=== PATIENT | male | born 1990 | race African-American/Black ===

== ENCOUNTER 2017-05-15 02:17 | Emergency (ER) | payer MEDICAID, OTHER, SELFPAY ==
--- NOTE | 2017-05-15 02:43 | EDM.PDOC ---
ED HPI GENERAL MEDICAL PROBLEM - General Chief Complaint: ENT Problem Stated Complaint: LEFT EAR PAIN Time Seen by Provider: 05/15/17 02:28 - History of Present Illness INITIAL COMMENTS - FREE TEXT/NARRATIVE: HISTORY AND PHYSICAL: History of present illness: The patient is a healthy 27-year-old male who presents with complaints of 2 days of left ear pain and he noticed drainage from it and he was concerned. Has not had a fever headache sore throat runny nose cough nausea or vomiting. He says he was swimming and that he might have gotten some water in there. He is only use ugdi-mad-barnqyc wax drops Review of systems: As per history of present illness and below otherwise all systems reviewed and negative. Past medical history: As per history of present illness and as reviewed below otherwise noncontributory. Surgical history: As per history of present illness and as reviewed below otherwise noncontributory. Social history: No reported history of drug or alcohol abuse. Family history: As per history of present illness and as reviewed below otherwise noncontributory. Physical exam: HEENT: Atraumatic, normocephalic, pupils reactive, negative for conjunctival pallor or scleral icterus, mucous membranes moist, throat clear, neck supple, nontender, trachea midline. TM on the right is Shemar is some cerumen in the canal but there is no swelling drainage or mastoid tenderness. On the left there is no mastoid tenderness or redness but there is gross inflammation of the external canal with debris and liquefied cerumen area the TM is unable to be seen completely but the area that I can see is somewhat reddened. Lungs: Clear to auscultation, breath sounds equal bilaterally, chest nontender. Heart: S1S2, regular rate and rhythm no overt murmurs Abdomen: Soft, nondistended, nontender. NABS Genitourinary: Deferred. Rectal: Deferred. Extremities: Atraumatic, negative for cords or calf pain. Neurovascular unremarkable. Neuro: Awake, alert, oriented. Cranial nerves II through XII unremarkable. Cerebellum unremarkable. Motor and sensory unremarkable throughout. Exam nonfocal. Diagnostics: [] Therapeutics: [] Impression: Otitis externa Definitive disposition and diagnosis as appropriate pending reevaluation and review of above. Left Ear Pain Score (Numeric/FACES): 10 - Related Data Allergies Allergy/AdvReac Type Severity Reaction Status Date / Time No Known Allergies Allergy Verified 05/15/17 02:29 Home Meds: Home Meds . [No Known Home Meds] 05/15/17 [History] Past Medical History - Past Health History Medical/Surgical History: Denies Medical/Surgical History HEENT History: Reports: None Cardiovascular History: Reports: Heart Murmur Respiratory History: Reports: None Gastrointestinal History: Reports: None Genitourinary History: Reports: None Musculoskeletal History: Reports: Fracture Neurological History: Reports: None Psychiatric History: Reports: Depression, Suicide Attempt, Suicidal Ideation Endocrine/Metabolic History: Reports: Obesity/BMI 30+ Hematologic History: Reports: None Immunologic History: Reports: None Oncologic (Cancer) History: Reports: None Dermatologic History: Reports: None - Infectious Disease History Infectious Disease History: Reports: Chicken Pox - Past Surgical History Musculoskeletal Surgical History: Reports: Shoulder Surgery Social & Family History - Family History Family Medical History: Noncontributory - Tobacco Use Smoking Status *Q: Never Smoker Second Hand Smoke Exposure: No - Caffeine Use Caffeine Use: Reports: Coffee - Alcohol Use Days Per Week of Alcohol Use: 1 Number of Drinks Per Day: 3 Total Drinks Per Week: 3 - Recreational Drug Use Recreational Drug Use: No ED ROS GENERAL - Review of Systems Review Of Systems: ROS reveals no pertinent complaints other than HPI. ED EXAM, GENERAL - Physical Exam Exam: See Below (See dictation) Course - Vital Signs Last Recorded V/S: Last Vital Signs Temp 36.5 C 05/15/17 02:25 Pulse 113 H 05/15/17 02:25 Resp 20 05/15/17 02:25 BP 161/98 H 05/15/17 02:25 Pulse Ox 95 05/15/17 02:25 Departure - Departure Time of Disposition: 02:41 Disposition: Home, Self-Care 01 Condition: Good Clinical Impression: Otitis externa Qualifiers: Otitis externa type: swimmer's ear Chronicity: acute Laterality: left Qualified Code(s): H60.332 - Swimmer's ear, left ear - Discharge Information Forms: ED Department Discharge Additional Instructions: The following information is given to patients seen in the emergency department who are being discharged to home. This information is to outline your options for follow-up care. We provide all patients seen in our emergency department with a follow-up referral. The need for follow-up, as well as the timing and circumstances, are variable depending upon the specifics of your emergency department visit. If you don't have a primary care physician on staff, we will provide you with a referral. We always advise you to contact your personal physician following an emergency department visit to inform them of the circumstance of the visit and for follow-up with them and/or the need for any referrals to a consulting specialist. The emergency department will also refer you to a specialist when appropriate. This referral assures that you have the opportunity for followup care with a specialist. All of these measure are taken in an effort to provide you with optimal care, which includes your followup. Under all circumstances we always encourage you to contact your private physician who remains a resource for coordinating your care. When calling for followup care, please make the office aware that this follow-up is from your recent emergency room visit. If for any reason you are refused follow-up, please contact the [facility] emergency department at and ask to speak to the emergency department charge nurse. [facility] Primary [facility]- [place] [id number] These use medications that you're given tonight as directed, amoxicillin and Cortisporin otic. Please put nothing in the ear including Q-tips and expect drainage from the ear which she which is clean what you can see. Use over-the- counter Tylenol/ibuprofen for pain and please complete the amoxicillin. Call and follow-up in our clinic in the next few days for reevaluation and further care. Please prevent anymore water from getting into your ear until the treatment is finished.
== END 2017-05-15 03:13 | disposition home or self-care (01) ==
LOC: MW.ED 02:17
CPT/HCPCS: 99282

== ENCOUNTER 2017-07-23 17:54 | Emergency (ER) | payer OTHER, SELFPAY ==
[2017-07-23] MEDS ORDERED: Sodium Chloride 0.9% 2.5 ML Syringe FLUSH PRN (18:46)
[2017-07-23] MEDS ORDERED: Ketorolac 30 MG/ML SDV IVPUSH ONE (18:46)
[2017-07-23] MEDS ORDERED: Sodium Chloride 0.9% 1,000 ML IV ONE (18:46)
[2017-07-23] MEDS ORDERED: Ondansetron 4 MG/2 ML SDV IVPUSH ONE (18:46)
[2017-07-23] MEDS ORDERED: Sodium Chloride 0.9% 10 ML Syringe FLUSH PRN (18:46)
[2017-07-23 19:21] LABS: CHLORIDE,CL 107 mmol/L (98-110); SODIUM,NA 140 mmol/L (136-146)
[2017-07-23] MEDS ORDERED: Iopamidol 755 MG/ML 500 ML Multipack Bottle IVPUSH STA (21:35)
[2017-07-23] MEDS ORDERED: Morphine 10 MG/ML Syringe IV ONE (21:46)
--- NOTE | 2017-07-23 21:54 | EDM.PDOC ---
ED HPI GENERAL MEDICAL PROBLEM - General Chief Complaint: Abdominal Pain Stated Complaint: PT HAS STOMACH PAINS Time Seen by Provider: 07/23/17 18:33 Source of Information: Reports: Patient, Family History Limitations: Reports: No Limitations - History of Present Illness INITIAL COMMENTS - FREE TEXT/NARRATIVE: HISTORY AND PHYSICAL: []27-year-old black male presenting with abdominal pain for the last week History of Present Illness: []Patient had 2 bouts of diarrhea today With further discussion patient reveals he has had 2 hospitals tell him that he has had cholecystitis, [facility] not Review of Systems: As per history of present illness and below otherwise all systems reviewed and negative. Past medical history: As per history of present illness and as reviewed below otherwise noncontributory. Surgical history: As per history of present illness and as reviewed below otherwise noncontributory. Social history: No reported history of drug or alcohol abuse. Family history: As per history of present illness and as reviewed below otherwise noncontributory. Physical exam: Alert and oriented gentleman answering questions appropriately in full sentences without any shortness of breath he is nontoxic in appearance. HEENT: Atraumatic, normocehpalic, pupils reactive, negative for conjunctival pallor or scleral icterus, mucous membranes moist, throat clear, neck supple, nontender, trachea midline. Lungs: Clear to auscultation, breath sounds equal bilaterally, chest non tender. Heart: S1S2, regular, negative for clicks, rubs, or JVD. Abdomen: Soft, nondistended, exquisite tenderness to right epigastric. Negative for masses or hepatossplenmegaly. Negative for costovertebral tenderness. Pelvis: Stable nontender. Genitourinary: Deferred. Rectal: Deferred Extremities: Atraumatic, negative for cords or calf pain. Neurovascular unremarkable. Neuro: Awake, alert, oriented. Cranial nerves II through XII unremarkable. Cerebellum unremarkable. Motor and sensory unremarkable throughout. Exam nonfocal. Diagnostics: [CT abdomen and pelvis] Therapeutics: [IV fluids morphine and Zofran] Impression: [Biliary colic] Plan: [Discharged to home Nexium 20 mg twice daily No fat diet Pain medication hydrocodone/APAP Follow-up with Dr. Reji Coker [facility] - General Surgery [facility] [address] [place] [address], [address] [place] [address] ] Definitive disposition and diagnosis as appropriate pending reevaluation and review of above. abdominal area Pain Score (Numeric/FACES): 7 - Related Data Allergies Allergy/AdvReac Type Severity Reaction Status Date / Time No Known Allergies Allergy Verified 07/23/17 18:30 Home Meds: Home Meds . [No Known Home Meds] 05/15/17 [History] Past Medical History - Past Health History Medical/Surgical History: Denies Medical/Surgical History HEENT History: Reports: None Cardiovascular History: Reports: Heart Murmur Respiratory History: Reports: None Gastrointestinal History: Reports: None Genitourinary History: Reports: None Musculoskeletal History: Reports: Fracture Neurological History: Reports: None Psychiatric History: Reports: Depression, Suicide Attempt, Suicidal Ideation Endocrine/Metabolic History: Reports: Obesity/BMI 30+ Hematologic History: Reports: None Immunologic History: Reports: None Oncologic (Cancer) History: Reports: None Dermatologic History: Reports: None - Infectious Disease History Infectious Disease History: Reports: Chicken Pox Other Infectious Disease History: staph infection - Past Surgical History Head Surgeries/Procedures: Reports: None Musculoskeletal Surgical History: Reports: Shoulder Surgery Social & Family History - Family History Family Medical History: Noncontributory - Tobacco Use Smoking Status *Q: Never Smoker Second Hand Smoke Exposure: No - Caffeine Use Caffeine Use: Reports: Coffee Caffeine Use Comment: 2cups/day - Alcohol Use Days Per Week of Alcohol Use: 1 Number of Drinks Per Day: 3 Total Drinks Per Week: 3 - Recreational Drug Use Recreational Drug Use: No ED ROS GENERAL - Review of Systems Review Of Systems: ROS reveals no pertinent complaints other than HPI. ED EXAM, GI/ABD - Physical Exam Exam: See Below (See dictation) Course - Vital Signs Last Recorded V/S: Last Vital Signs Temp 36.7 C 07/23/17 18:30 Pulse 69 07/23/17 20:56 Resp 20 07/23/17 20:56 BP 155/100 H 07/23/17 20:56 Pulse Ox 99 07/23/17 20:56 - Orders/Labs/Meds Orders: Active Orders 24 hr Category Date Time Status Abdomen Pelvis w Cont [CT] Stat Exams 07/23/17 20:07 Taken Chest 2V [CR] Stat Exams 07/23/17 18:45 Taken Sodium Chloride 0.9% [Saline Flush] Med 07/23/17 18:46 Active 10 ml FLUSH ASDIRECTED PRN Sodium Chloride 0.9% [Saline Flush] Med 07/23/17 18:46 Active 2.5 ml FLUSH ASDIRECTED PRN Saline Lock Insert [OM.PC] Stat Oth 07/23/17 18:45 Ordered Medication Orders Sodium Chloride (Saline Flush) 10 ml FLUSH ASDIRECTED PRN PRN Reason: Keep Vein Open Sodium Chloride (Saline Flush) 2.5 ml FLUSH ASDIRECTED PRN PRN Reason: Keep Vein Open Labs: Laboratory Tests 07/23/17 07/23/17 07/23/17 Range/Units 18:50 18:50 19:36 WBC 4.61 (4.0-11.0) K/uL RBC 6.09 H (4.50-5.90) M/uL Hgb 16.6 (13.0-17.0) g/dL Hct 48.3 (38.0-50.0) % MCV 79.3 L (80.0-98.0) fL MCH 27.3 (27.0-32.0) pg MCHC 34.4 (31.0-37.0) g/dL RDW Std Deviation 40.3 (28.0-62.0) fl RDW Coeff of Lam 14 (11.0-15.0) % Plt Count 253 (150-400) K/uL MPV 10.10 (7.40-12.00) fL Neut % (Auto) 63.6 (48.0-80.0) % Lymph % (Auto) 23.6 (16.0-40.0) % Stanley % (Auto) 8.9 (0.0-15.0) % Eos % (Auto) 3.7 (0.0-7.0) % Baso % (Auto) 0.2 (0.0-1.5) % Neut # (Auto) 2.9 (1.4-5.7) K/uL Lymph # (Auto) 1.1 (0.6-2.4) K/uL Stanley # (Auto) 0.4 (0.0-0.8) K/uL Eos # (Auto) 0.2 (0.0-0.7) K/uL Baso # (Auto) 0.0 (0.0-0.1) K/uL Nucleated RBC % 0.0 /100WBC Nucleated RBCs # 0 K/uL Sodium 140 (136-146) mmol/L Potassium 4.2 (3.5-5.1) mmol/L Chloride 107 (98-110) mmol/L Carbon Dioxide 23 (21-31) mmol/L BUN 11 (6.0-23.0) mg/dL Creatinine 0.8 (0.6-1.5) mg/dL Est Cr Clr Drug Dosing 128.53 mL/min Estimated GFR (MDRD) > 60.0 ml/min Glucose 104 (60-110) mg/dL Calcium 9.5 (8.8-10.8) mg/dL Total Bilirubin 1.3 (0.1-1.5) mg/dL AST 411 H (5-40) IU/L ALT 330 H (8-54) IU/L Alkaline Phosphatase 95 (40-150) Total Protein 7.9 (6.0-8.0) g/dL Albumin 4.2 (3.5-5.0) g/dL Globulin 3.7 H (2.0-3.5) g/dL Albumin/Globulin Ratio 1.1 L (1.3-2.8) Amylase 64 (10-90) U/L Lipase 30 (7-80) U/L Urine Color YELLOW Urine Appearance HAZY Urine pH 7.0 (5.0-8.0) Ur Specific [place] 1.025 (1.001-1.035) Urine Protein 100 (NEGATIVE) mg/dL Urine Glucose (UA) NEGATIVE (NEGATIVE) mg/dL Urine Ketones NEGATIVE (NEGATIVE) mg/dL Urine Occult Blood NEGATIVE (NEGATIVE) Urine Nitrite NEGATIVE (NEGATIVE) Urine Bilirubin SMALL H (NEGATIVE) Urine Ictotest NEGATIVE Urine Urobilinogen 4.0 H (<2.0) EU/dL Ur Leukocyte Esterase NEGATIVE (NEGATIVE) Urine RBC 0-2 (0-2/HPF) Urine WBC 0-3 (0-5/HPF) Ur Epithelial Cells RARE (NONE-FEW) Urine Bacteria RARE (NEGATIVE) Meds: Medications Generic Name Dose Route Start Last Admin Trade Name Freq PRN Reason Stop Dose Admin Sodium Chloride 10 ml 07/23/17 18:46 Saline Flush FLUSH ASDIRECTED PRN Keep Vein Open Sodium Chloride 2.5 ml 07/23/17 18:46 Saline Flush FLUSH ASDIRECTED PRN Keep Vein Open Discontinued Medications Generic Name Dose Route Start Last Admin Trade Name Alexey PRN Reason Stop Dose Admin Sodium Chloride 1,000 mls @ 999 mls/hr 07/23/17 18:46 07/23/17 19:36 Normal Saline IV 07/23/17 19:46 999 mls/hr STAT ONE Administration Iopamidol 100 ml 07/23/17 21:35 07/23/17 21:36 Isovue Multipack-370 (76%) IVPUSH 07/23/17 21:36 100 ml ONETIME STA Administration Ketorolac Tromethamine 30 mg 07/23/17 18:46 07/23/17 19:33 Toradol IVPUSH 07/23/17 18:47 30 mg ONETIME ONE Administration Morphine Sulfate 2 mg 07/23/17 21:46 Morphine IV 07/23/17 21:47 ONETIME ONE Ondansetron HCl 4 mg 07/23/17 18:46 07/23/17 19:34 Zofran IVPUSH 07/23/17 18:47 4 mg ONETIME ONE Administration Departure - Departure Time of Disposition: 21:51 Disposition: Home, Self-Care 01 Condition: Good Clinical Impression: Biliary colic - Discharge Information Instructions: Pain Medicine Instructions, [id number] Referrals: PCP,None [Primary Care Provider] - Reji Coker MD [Physician] - Additional Instructions: The following information is given to patients seen in the emergency department who are being discharged to home. This information is to outline your options for follow-up care. We provide all patients seen in our emergency department with a follow-up referral. The need for follow-up, as well as the timing and circumstances, are variable depending upon the specifics of your emergency department visit. If you don't have a primary care physician on staff, we will provide you with a referral. We always advise you to contact your personal physician following an emergency department visit to inform them of the circumstance of the visit and for follow-up with them and/or the need for any referrals to a consulting specialist. The emergency department will also refer you to a specialist when appropriate. This referral assures that you have the opportunity for followup care with a specialist. All of these measure are taken in an effort to provide you with optimal care, which includes your followup. Under all circumstances we always encourage you to contact your private physician who remains a resource for coordinating your care. When calling for followup care, please make the office aware that this follow-up is from your recent emergency room visit. If for any reason you are refused follow-up, please contact the [facility] emergency department at and asked to speak to the emergency department charge nurse. Low-fat diet Follow-up with Dr. Reji Coker : Tuesday morning to obtain an appointment Prescription has been given for hydrocodone/APAP one every 6 hours when necessary pain per [facility] - My Orders Last 24 Hours: My Active Orders 07/23/17 18:45 Chest 2V [CR] Stat Saline Lock Insert [OM.PC] Stat 07/23/17 18:46 Sodium Chloride 0.9% [Saline Flush] 10 ml FLUSH ASDIRECTED PRN Sodium Chloride 0.9% [Saline Flush] 2.5 ml FLUSH ASDIRECTED PRN 07/23/17 20:07 Abdomen Pelvis w Cont [CT] Stat - Assessment/Plan Last 24 Hours: My Active Orders 07/23/17 18:45 Chest 2V [CR] Stat Saline Lock Insert [OM.PC] Stat 07/23/17 18:46 Sodium Chloride 0.9% [Saline Flush] 10 ml FLUSH ASDIRECTED PRN Sodium Chloride 0.9% [Saline Flush] 2.5 ml FLUSH ASDIRECTED PRN 07/23/17 20:07 Abdomen Pelvis w Cont [CT] Stat
[2017-07-23 22:06] VITALS: BP 148/98
--- NOTE | 2017-07-25 11:01 | CR ---
EXAM DATE: 07/23/17 PATIENT'S AGE: 27 Patient: MICHEL DE LOS SANTOS Facility: [place], [place] Site . Site : 1990 Study: XRay Chest [id number]/7/2017 7:14:01 PM Ordering Physician: Doctor Rodriguez Final Report: INDICATION: Pain. Shortness of breath. Technique: PA and lateral chest x-ray. Findings: Mild to moderate increased bronchovascular markings in the right lower lobe of uncertain etiology. Lungs otherwise clear without infiltrate. Heart size normal. Chest otherwise negative. Dictated by Rajendra Crawford MD @ Jul 23 2017 7:34PM (Electronic Signature) Report Signed by Proxy. HALINA
--- NOTE | 2017-07-25 11:10 | CT ---
EXAM DATE: 07/23/17 PATIENT'S AGE: 27 Patient: MICHEL DE LOS SANTOS Facility: [place], [place] Site . Site : 1990 Study: CT Abdomen/Pelvis [id number]/7/2017 9:02:24 PM Ordering Physician: Doctor Rodriguez Final Report: INDICATION: Right lower quadrant abdominal pain for 1 week. Technique: CT of abdomen and pelvis performed after the IV injection of 100 mL of IV contrast. Findings: Opaque areas of nodular low density in the dependent gallbladder likely related to subtle stones. Mild hazy increased density in the fat along the posterior gallbladder with possible trace associated fluid in this region. The findings suggest mild/early cholecystitis which should be excluded. Gallbladder is distended to 9-10 cm. Gallbladder ultrasound and/or HIDA scan could further evaluate. Clinical and laboratory correlation recommended. Subcutaneous edema back. Tiny cyst left kidney. Small right inguinal hernia containing only fat. Mildly prominent bilateral inguinal lymph nodes greater on the left are likely reactive in nature. Small lymph nodes along the iliac chains in the pelvis. Scattered small nonenlarged lymph nodes in the gastrohepatic ligament, portacaval region, celiac axis, and rustam hepatis region are likely reactive. Appendix is normal. Cluster of mildly prominent right lower quadrant mesenteric lymph nodes likely inflammatory reactive. Remainder negative. Impression: 1. Hazy inflammatory increased density in the fat posterior to the gallbladder with possible trace amount of fluid in this region. Findings would suggest mild or early acute cholecystitis. Small low-density filling defects in the gallbladder which I suspect are related to stones, sludge, debris, or combination of both etiologies. Clinical and laboratory correlation recommended. If clinically desired HIDA scan or ultrasound could further evaluate for cholecystitis. 2. Small right inguinal hernia containing only fat. 3. Few mildly prominent right lower quadrant mesenteric and bilateral inguinal lymph nodes are likely inflammatory or reactive. Single mildly prominent left distal external iliac chain lymph node on image 123. Other findings as above. Please note that all CT scans at this facility use dose modulation, iterative reconstruction, and/or weight-based dosing when appropriate to reduce radiation dose to as low as reasonably achievable. Dictated by Rajendra Crawford MD @ Jul 23 2017 9:19PM (Electronic Signature) Report Signed by Proxy. MTDD
== END 2017-07-23 22:07 | disposition home or self-care (01) ==
LOC: MW.ED 17:54
DX: K80.50 Calculus of bile duct without cholangitis or cholecystitis without obstruction (principal)
CPT/HCPCS: 36415; 71020; 74177; 80053; 81001; 82150; 83690; 85025; 96361; 96374; 96375; 99284; J1885; J2270; J2405; J7040; Q9967; 99283

== ENCOUNTER → 2017-08-29 | Day surgery (SDC) | payer OTHER, SELFPAY ==
[~2017-08-29] MED LIST: Bupivacaine 0.5% 30 ML SDV ONE; HYDROmorphone 2 MG/ML Syringe ONE; Ketorolac 30 MG/ML SDV ONE; Lactated Ringers 1,000 ML IV SCH; Lidocaine 2% 5 ML SDV ONE; Metoclopramide 10 MG/2 ML SDV ONE; Midazolam 1 MG/ML 2 ML SDV ONE; Neostigmine Methylsulfate 1 MG/ML 5 ML Syringe ONE; Ondansetron 4 MG/2 ML SDV ONE; Propofol 200 MG/20 ML SDV ONE; Rocuronium 10 MG/ML 10 ML Syringe ONE; Scopolamine 1.5 MG Transdermal Patch TOP ONE; ceFAZolin 1 GM Vial ONE; cefOXitin 1 GM Vial ONE; cefOXitin 2 GM in Premix Bag 1 BAG IV ONE; diphenhydrAMINE 50 MG/ML SDV ONE; fentaNYL 100 MCG/2 ML SDV ONE
[2017-08-29 07:14] VITALS: BP 146/96
--- NOTE | 2017-08-31 20:37 | PCM.OPNOTE ---
- General Post-Op/Procedure Note Date of Surgery/Procedure: 08/29/17 Operative Procedure(s): Surgery cancelled. Condition: Good
== END ==
LOC: MW.SDS 06:20
PROVIDERS: ATTEND Surgery
DX: K80.20 Calculus of gallbladder without cholecystitis without obstruction (principal); Z53.8 Procedure and treatment not carried out for other reasons
CPT/HCPCS: A9270; J7120; J0690; J0694; J1170; J1200; J1885; J2250; J2405; J2704; J2765; J3010

== ENCOUNTER 2018-03-29 11:32 | Emergency (ER) | payer OTHER, SELFPAY ==
--- NOTE | 2018-03-29 11:54 | EDM.PDOC ---
ED HPI GENERAL MEDICAL PROBLEM - General Chief Complaint: General Stated Complaint: PT WOULD LIKE TO GET CHECK FOR THE FLU Time Seen by Provider: 03/29/18 11:52 Source of Information: Reports: Patient - History of Present Illness INITIAL COMMENTS - FREE TEXT/NARRATIVE: HISTORY AND PHYSICAL: History of present illness: [Patient presents with nosebleeds and nasal congestion over the last week currently no active epistaxis no fever chills sweats moderate nasal congestion] Review of systems: As per history of present illness and below otherwise all systems reviewed and negative. Past medical history: As per history of present illness and as reviewed below otherwise noncontributory. Surgical history: As per history of present illness and as reviewed below otherwise noncontributory. Social history: No reported history of drug or alcohol abuse. Family history: As per history of present illness and as reviewed below otherwise noncontributory. Physical exam: HEENT: Atraumatic, normocephalic, pupils reactive, negative for conjunctival pallor or scleral icterus, mucous membranes moist, throat clear, neck supple, nontender, trachea midline. Tympanic membranes clear with serous effusion bilaterally no mastoid tenderness sinus boggy mucosa nasal discharge noted sinus tenderness right greater than left Lungs: Clear to auscultation, breath sounds equal bilaterally, chest nontender. Heart: S1S2, regular, negative for clicks, rubs, or JVD. Abdomen: Soft, nondistended, nontender. Negative for masses or hepatosplenomegaly. Negative for costovertebral tenderness. Pelvis: Stable nontender. Genitourinary: Deferred. Rectal: Deferred. Extremities: Atraumatic, negative for cords or calf pain. Neurovascular unremarkable. Neuro: Awake, alert, oriented. Cranial nerves II through XII unremarkable. Cerebellum unremarkable. Motor and sensory unremarkable throughout. Exam nonfocal. Diagnostics: [Influenza-patient insistent and requests ] Therapeutics: amoxil Flonase Claritin ] Impression: [ acute sinusitis ] Definitive disposition and diagnosis as appropriate pending reevaluation and review of above. - Related Data Allergies Allergy/AdvReac Type Severity Reaction Status Date / Time No Known Allergies Allergy Verified 03/29/18 11:46 Home Meds: Home Meds Acetaminophen [Tylenol Extra Strength] 1 tab PO Q4H PRN 08/23/17 [History] Past Medical History - Past Health History Medical/Surgical History: Denies Medical/Surgical History HEENT History: Reports: Other (See Below) Other HEENT History: hx of fx nose Cardiovascular History: Reports: Heart Murmur Respiratory History: Reports: None Gastrointestinal History: Reports: GERD Genitourinary History: Reports: None Musculoskeletal History: Reports: Fracture, Other (See Below) Other Musculoskeletal History: bilateral foot pain (achilles tendon), hx of fx left foot, nose, hand, left shoulder, toes, fingers Neurological History: Reports: Concussion, Migraines Psychiatric History: Reports: Depression, PTSD Other Psychiatric History: does not take any medication Endocrine/Metabolic History: Reports: Obesity/BMI 30+ Hematologic History: Reports: None Immunologic History: Reports: None Oncologic (Cancer) History: Reports: None Dermatologic History: Reports: None - Infectious Disease History Infectious Disease History: Reports: Chicken Pox Other Infectious Disease History: staph infection - Past Surgical History Head Surgeries/Procedures: Reports: None Musculoskeletal Surgical History: Reports: Shoulder Surgery Other Musculoskeletal Surgeries/Procedures:: trauma to left shoulder- fx, biceps tenotomy, RTCR- unsure of hardware Social & Family History - Family History Family Medical History: Noncontributory - Caffeine Use Caffeine Use: Reports: Coffee Caffeine Use Comment: 2cups/day ED ROS GENERAL - Review of Systems Review Of Systems: See Below ED EXAM, GENERAL - Physical Exam Exam: See Below Course - Vital Signs Last Recorded V/S: Last Vital Signs Temp 98.6 F 03/29/18 11:47 Pulse 84 03/29/18 11:47 Resp 16 03/29/18 11:47 BP 138/91 H 03/29/18 11:47 Pulse Ox 96 03/29/18 11:47 - Orders/Labs/Meds Orders: Active Orders 24 hr Category Date Time Status INFLUENZA A+B AG SCREEN [RM] Stat Lab 03/29/18 11:42 Ordered INFLUENZA A+B AG SCREEN [RM] Stat Lab 03/29/18 11:52 Ordered Departure - Departure Time of Disposition: 11:55 Disposition: Home, Self-Care 01 Condition: Good Clinical Impression: Sinusitis - Discharge Information Referrals: PCP,None [Primary Care Provider] - Forms: ED Department Discharge Additional Instructions: Medication as prescribed Claritin 10 mg by mouth daily may benefit Return if symptoms persist or worsen Follow-up with primary care as needed [facility] [address] [place] [id number] The following information is given to patients seen in the emergency department who are being discharged to home. This information is to outline your options for follow-up care. We provide all patients seen in our emergency department with a follow-up referral. The need for follow-up, as well as the timing and circumstances, are variable depending upon the specifics of your emergency department visit. If you don't have a primary care physician on staff, we will provide you with a referral. We always advise you to contact your personal physician following an emergency department visit to inform them of the circumstance of the visit and for follow-up with them and/or the need for any referrals to a consulting specialist. The emergency department will also refer you to a specialist when appropriate. This referral assures that you have the opportunity for follow-up care with a specialist. All of these measure are taken in an effort to provide you with optimal care, which includes your follow-up. Under all circumstances we always encourage you to contact your private physician who remains a resource for coordinating your care. When calling for follow-up care, please make the office aware that this follow-up is from your recent emergency room visit. If for any reason you are refused follow-up, please contact the [facility] emergency department at and asked to speak to the emergency department charge nurse. - My Orders Last 24 Hours: My Active Orders 03/29/18 11:42 INFLUENZA A+B AG SCREEN [RM] Stat 03/29/18 11:52 INFLUENZA A+B AG SCREEN [RM] Stat - Assessment/Plan Last 24 Hours: My Active Orders 03/29/18 11:42 INFLUENZA A+B AG SCREEN [RM] Stat 03/29/18 11:52 INFLUENZA A+B AG SCREEN [RM] Stat
[2018-03-29 13:01] VITALS: BP 190/97
== END 2018-03-29 12:48 | disposition home or self-care (01) ==
LOC: MW.ED 11:32
DX: J01.90 Acute sinusitis, unspecified (principal); E66.9 Obesity, unspecified
CPT/HCPCS: 87804; 99283

== ENCOUNTER 2018-03-30 19:07 | Emergency (ER) | payer SELFPAY ==
--- NOTE | 2018-03-30 19:24 | EDM.PDOC ---
ED HPI GENERAL MEDICAL PROBLEM - General Chief Complaint: ENT Problem Stated Complaint: NOSE BLEED Time Seen by Provider: 03/30/18 19:24 Source of Information: Reports: Patient - History of Present Illness INITIAL COMMENTS - FREE TEXT/NARRATIVE: HISTORY AND PHYSICAL: History of present illness: [Patient presents with persistent intermittent epistaxis Recently diagnosed with sinusitis, he is on amoxicillin Nosebleed occurs intermittently several times a day on the left no air there is a couple of anterior abrasions I can cauterize this may be the entire problem otherwise his left naris swollen shut, right near is patent no abrasions or abnormality noted he denies any trauma no fever chills sweats today patient is not bleeding at current ] Review of systems: As per history of present illness and below otherwise all systems reviewed and negative. Past medical history: As per history of present illness and as reviewed below otherwise noncontributory. Surgical history: As per history of present illness and as reviewed below otherwise noncontributory. Social history: No reported history of drug or alcohol abuse. Family history: As per history of present illness and as reviewed below otherwise noncontributory. Physical exam: HEENT: Atraumatic, normocephalic, pupils reactive, negative for conjunctival pallor or scleral icterus, mucous membranes moist, throat clear, neck supple, nontender, trachea midline. Nares as per history of present illness Lungs: Clear to auscultation, breath sounds equal bilaterally, chest nontender. Heart: S1S2, regular, negative for clicks, rubs, or JVD. Abdomen: Soft, nondistended, nontender. Negative for masses or hepatosplenomegaly. Negative for costovertebral tenderness. Pelvis: Stable nontender. Genitourinary: Deferred. Rectal: Deferred. Extremities: Atraumatic, negative for cords or calf pain. Neurovascular unremarkable. Neuro: Awake, alert, oriented. Cranial nerves II through XII unremarkable. Cerebellum unremarkable. Motor and sensory unremarkable throughout. Exam nonfocal. Diagnostics: [CBC, INR] Therapeutics: Patient is on amoxicillin and Flonase as well as Claritin was advised previously Silver nitrate applied to anterior abrasions with cautery no complication no complaint Impression: []Sinusitis Intermittent epistaxis Definitive disposition and diagnosis as appropriate pending reevaluation and review of above. - Related Data Allergies Allergy/AdvReac Type Severity Reaction Status Date / Time No Known Allergies Allergy Verified 03/30/18 19:20 Home Meds: Home Meds Amoxicillin 875 mg PO DAILY 03/30/18 [History] Past Medical History - Past Health History Medical/Surgical History: Denies Medical/Surgical History HEENT History: Reports: Other (See Below) Other HEENT History: hx of fx nose Cardiovascular History: Reports: Heart Murmur Respiratory History: Reports: None Gastrointestinal History: Reports: Cholelithiasis, GERD Genitourinary History: Reports: None Musculoskeletal History: Reports: Fracture, Other (See Below) Other Musculoskeletal History: bilateral foot pain (achilles tendon), hx of fx left foot, nose, hand, left shoulder, toes, fingers Neurological History: Reports: Concussion, Migraines Psychiatric History: Reports: Depression, PTSD Other Psychiatric History: does not take any medication Endocrine/Metabolic History: Reports: Obesity/BMI 30+ Hematologic History: Reports: None Immunologic History: Reports: None Oncologic (Cancer) History: Reports: None Dermatologic History: Reports: None - Infectious Disease History Infectious Disease History: Reports: Chicken Pox Other Infectious Disease History: staph infection - Past Surgical History Head Surgeries/Procedures: Reports: None Musculoskeletal Surgical History: Reports: Shoulder Surgery Other Musculoskeletal Surgeries/Procedures:: trauma to left shoulder- fx, biceps tenotomy, RTCR- unsure of hardware Social & Family History - Family History Family Medical History: Noncontributory - Tobacco Use Smoking Status *Q: Never Smoker - Caffeine Use Caffeine Use: Reports: Coffee Caffeine Use Comment: 2cups/day - Recreational Drug Use Recreational Drug Use: No ED ROS GENERAL - Review of Systems Review Of Systems: See Below ED EXAM, GENERAL - Physical Exam Exam: See Below Course - Vital Signs Last Recorded V/S: Last Vital Signs Temp 99.0 F 03/30/18 19:17 Pulse 87 03/30/18 19:17 Resp 16 03/30/18 19:17 BP 148/108 H 03/30/18 19:17 Pulse Ox 95 03/30/18 19:17 - Orders/Labs/Meds Labs: Laboratory Tests 03/30/18 03/30/18 Range/Units 19:39 19:39 WBC 7.04 (4.0-11.0) K/uL RBC 6.00 H (4.50-5.90) M/uL Hgb 16.1 (13.0-17.0) g/dL Hct 47.2 (38.0-50.0) % MCV 78.7 L (80.0-98.0) fL MCH 26.8 L (27.0-32.0) pg MCHC 34.1 (31.0-37.0) g/dL RDW Std Deviation 39.3 (28.0-62.0) fl RDW Coeff of Lam 14 (11.0-15.0) % Plt Count 225 (150-400) K/uL MPV 9.70 (7.40-12.00) fL Neut % (Auto) 67.1 (48.0-80.0) % Lymph % (Auto) 19.3 (16.0-40.0) % Barry % (Auto) 7.2 (0.0-15.0) % Eos % (Auto) 6.3 (0.0-7.0) % Baso % (Auto) 0.1 (0.0-1.5) % Neut # (Auto) 4.7 (1.4-5.7) K/uL Lymph # (Auto) 1.4 (0.6-2.4) K/uL Barry # (Auto) 0.5 (0.0-0.8) K/uL Eos # (Auto) 0.4 (0.0-0.7) K/uL Baso # (Auto) 0.0 (0.0-0.1) K/uL Nucleated RBC % 0.0 /100WBC Nucleated RBCs # 0 K/uL INR 0.98 Departure - Departure Time of Disposition: 20:29 Disposition: Home, Self-Care 01 Condition: Good Clinical Impression: Epistaxis - Discharge Information Referrals: PCP,None [Primary Care Provider] - Forms: ED Department Discharge Additional Instructions: Return if symptoms persist or worsen Continue current medications including amoxicillin nasal spray a allergy medicine such as Claritin Follow-up with ENT, call for appointment and appropriate follow-up at number provided below [facility] - ENT [address] [place] [id number] The following information is given to patients seen in the emergency department who are being discharged to home. This information is to outline your options for follow-up care. We provide all patients seen in our emergency department with a follow-up referral. The need for follow-up, as well as the timing and circumstances, are variable depending upon the specifics of your emergency department visit. If you don't have a primary care physician on staff, we will provide you with a referral. We always advise you to contact your personal physician following an emergency department visit to inform them of the circumstance of the visit and for follow-up with them and/or the need for any referrals to a consulting specialist. The emergency department will also refer you to a specialist when appropriate. This referral assures that you have the opportunity for follow-up care with a specialist. All of these measure are taken in an effort to provide you with optimal care, which includes your follow-up. Under all circumstances we always encourage you to contact your private physician who remains a resource for coordinating your care. When calling for follow-up care, please make the office aware that this follow-up is from your recent emergency room visit. If for any reason you are refused follow-up, please contact the [facility] emergency department at and asked to speak to the emergency department charge nurse.
[2018-03-31 03:18] VITALS: BP 160/96
== END 2018-03-30 20:36 | disposition home or self-care (01) ==
LOC: MW.ED 19:07
DX: R04.0 Epistaxis (principal); J32.9 Chronic sinusitis, unspecified; K21.9 Gastro-esophageal reflux disease without esophagitis
CPT/HCPCS: 30901; 36415; 85025; 85610; 99282; 99283

== ENCOUNTER 2018-12-26 15:05 | Emergency (ER) | payer SELFPAY ==
--- NOTE | 2018-12-26 15:09 | EDM.PDOCBH ---
ED HPI GENERAL MEDICAL PROBLEM - General Chief Complaint: Behavioral/Psych Stated Complaint: MENTAL HEALTH Time Seen by Provider: 12/26/18 15:08 Source of Information: Reports: Patient History Limitations: Reports: No Limitations - History of Present Illness INITIAL COMMENTS - FREE TEXT/NARRATIVE: HISTORY AND PHYSICAL: History of present illness: Patient is a 28-year-old male who presents to the ED today with a police commissioner escort for concerns of suicidal intent. Patient states his plan today was to cut his wrist. Patient states that he was at work and began to have these thoughts. He states that he sat down and rather than going home for lunch , he stayed at work. Patient states had he gone home for lunch he would've made and active attempt to kill himself. His coworker had called the police commissioner with concerns. The police commissioner then brought Ángel to the ED today. Patient states he does have a history of depression, but has never been on medications or receive treatment for it. He states he has had suicidal ideation for several years. He states he did have 1 prior attempt and was loading a shotgun several years ago when his brother walked in on him and stopped him. He states that today his intent was to cut his wrist. Patient states that currently he has in the ED for help but he knows that if he were to go home he would try to kill himself. Patient has not taken any medications, alcohol, or drugs to make an attempt. Patient denies any health history. All other review of systems reviewed and negative. Review of systems: As per history of present illness and below otherwise all systems reviewed and negative. Past medical history: As per history of present illness and as reviewed below otherwise noncontributory. Surgical history: As per history of present illness and as reviewed below otherwise noncontributory. Social history: See social history for further information Family history: As per history of present illness and as reviewed below otherwise noncontributory. Physical exam: General: Patient is alert, oriented, and in no acute distress. He is sitting comfortably on exam table. HEENT: Atraumatic, normocephalic, pupils equal and reactive bilaterally, negative for conjunctival pallor or scleral icterus, mucous membranes moist, TMs normal bilaterally, throat clear, neck supple, nontender, trachea midline. No drooling or trismus noted. No meningeal signs. No hot potato voice noted. Lungs: Clear to auscultation, breath sounds equal bilaterally, chest nontender. Heart: S1S2, regular rate and rhythm without overt murmur Abdomen: Obese, soft, nondistended, nontender. Negative for masses or hepatosplenomegaly. Negative for costovertebral tenderness. Pelvis: Stable nontender. Genitourinary: Deferred. Rectal: Deferred. Skin: Intact, warm, dry. No lesions or rashes noted. Extremities: Atraumatic, negative for cords or calf pain. Neurovascular unremarkable. Neuro: Awake, alert, oriented. Cranial nerves II through XII unremarkable. Cerebellum unremarkable. Motor and sensory unremarkable throughout. Exam nonfocal. Notes: 15:35: Patient is open to receiving help today. Labs ordered and will start the process for transfer. 15:40: [facility] does not have any psychiatric beds available. Will wait for labs. 17:16: Blood work is unremarkable. Still awaiting patient to leave a urine sample. [facility] in [place] is accepting of the patient. We will arrange transfer via EMS. Patient is aware and agreeable. Patient's blood pressure remains slightly elevated. He states he has no previous history of this. We'll give him 1 dose of clonidine 0.1 mg by mouth. We will continue to monitor. Diagnostics: CBC, CMP, UA, urine drug screen, salicylate, acetaminophen tsh Therapeutics: Clonidine 0.1mg Impression: Suicidal Ideation with Intent Plan: 1. Transfer to [facility]. Definitive disposition and diagnosis as appropriate pending reevaluation and review of above. - Related Data Allergies Allergy/AdvReac Type Severity Reaction Status Date / Time No Known Allergies Allergy Verified 03/30/18 19:20 Home Meds: Home Meds . [No Known Home Meds] 12/26/18 [History] Past Medical History - Past Health History Medical/Surgical History: Denies Medical/Surgical History HEENT History: Reports: Other (See Below) Other HEENT History: hx of fx nose Cardiovascular History: Reports: Heart Murmur Respiratory History: Reports: None Gastrointestinal History: Reports: Cholelithiasis, GERD Genitourinary History: Reports: None Musculoskeletal History: Reports: Fracture, Other (See Below) Other Musculoskeletal History: bilateral foot pain (achilles tendon), hx of fx left foot, nose, hand, left shoulder, toes, fingers Neurological History: Reports: Concussion, Migraines Psychiatric History: Reports: Depression, PTSD Other Psychiatric History: does not take any medication Endocrine/Metabolic History: Reports: Obesity/BMI 30+ Hematologic History: Reports: None Immunologic History: Reports: None Oncologic (Cancer) History: Reports: None Dermatologic History: Reports: None - Infectious Disease History Infectious Disease History: Reports: Chicken Pox Other Infectious Disease History: staph infection - Past Surgical History Head Surgeries/Procedures: Reports: None Musculoskeletal Surgical History: Reports: Shoulder Surgery Other Musculoskeletal Surgeries/Procedures:: trauma to left shoulder- fx, biceps tenotomy, RTCR- unsure of hardware Social & Family History - Family History Family Medical History: Noncontributory - Caffeine Use Caffeine Use: Reports: Coffee Caffeine Use Comment: 2cups/day ED ROS GENERAL - Review of Systems Review Of Systems: ROS reveals no pertinent complaints other than HPI. ED EXAM, BEHAVIORAL HEALTH - Physical Exam Exam: See Below (See dictation) COURSE, BEHAVIORAL HEALTH COMP - Course Vital Signs: Last Vital Signs Temp 98.3 F 12/26/18 15:12 Pulse 92 12/26/18 15:12 Resp 17 12/26/18 15:12 BP 159/102 H 12/26/18 15:12 Pulse Ox 96 12/26/18 15:12 Orders, Labs, Meds: Active Orders 24 hr Category Date Time Status DRUG SCREEN, URINE [URCHEM] Stat Lab 12/26/18 15:27 Ordered UA RFX MEGAN AND CULT IF INDIC [URIN] Stat Lab 12/26/18 15:27 Ordered Laboratory Tests 12/26/18 12/26/18 Range/Units 15:37 15:37 WBC 5.98 (4.0-11.0) K/uL RBC 6.22 H (4.50-5.90) M/uL Hgb 16.5 (13.0-17.0) g/dL Hct 48.7 (38.0-50.0) % MCV 78.3 L (80.0-98.0) fL MCH 26.5 L (27.0-32.0) pg MCHC 33.9 (31.0-37.0) g/dL RDW Std Deviation 38.6 (28.0-62.0) fl RDW Coeff of Lam 14 (11.0-15.0) % Plt Count 304 (150-400) K/uL MPV 9.90 (7.40-12.00) fL Neut % (Auto) 65.4 (48.0-80.0) % Lymph % (Auto) 23.1 (16.0-40.0) % Griggs % (Auto) 9.2 (0.0-15.0) % Eos % (Auto) 2.0 (0.0-7.0) % Baso % (Auto) 0.3 (0.0-1.5) % Neut # (Auto) 3.9 (1.4-5.7) K/uL Lymph # (Auto) 1.4 (0.6-2.4) K/uL Griggs # (Auto) 0.6 (0.0-0.8) K/uL Eos # (Auto) 0.1 (0.0-0.7) K/uL Baso # (Auto) 0.0 (0.0-0.1) K/uL Nucleated RBC % 0.0 /100WBC Nucleated RBCs # 0 K/uL Sodium 142 (136-148) mmol/L Potassium 4.1 (3.5-5.1) mmol/L Chloride 105 (98-107) mmol/L Carbon Dioxide 24.3 (21.0-32.0) mmol/L BUN 9 (7.0-18.0) mg/dL Creatinine 1.2 (0.8-1.3) mg/dL Est Cr Clr Drug Dosing 84.92 mL/min Estimated GFR (MDRD) > 60.0 ml/min Glucose 95 (74-106) mg/dL Calcium 9.6 (8.5-10.1) mg/dL Total Bilirubin 0.7 (0.2-1.0) mg/dL AST 17 (15-37) IU/L ALT 38 (14-63) IU/L Alkaline Phosphatase 74 (46-116) U/L Total Protein 8.5 H (6.4-8.2) g/dL Albumin 4.0 (3.4-5.0) g/dL Globulin 4.5 H (2.6-4.0) g/dL Albumin/Globulin Ratio 0.9 (0.9-1.6) TSH 3rd Generation 1.65 (0.36-3.74) uIU/mL Salicylates 0.2 (0-20) mg/dL Acetaminophen < 2.0 ug/mL Ethyl Alcohol <3 mg/dL Departure - Departure Time of Disposition: 17:30 Disposition: DC/Tfer to Psych Hosp/Unit [facility] Clinical Impression: Suicidal intent - Discharge Information Referrals: PCP,Unknown [Primary Care Provider] - Forms: ED Department Discharge - My Orders Last 24 Hours: My Active Orders 12/26/18 15:27 DRUG SCREEN, URINE [URCHEM] Stat UA RFX MEGAN AND CULT IF INDIC [URIN] Stat - Assessment/Plan Last 24 Hours: My Active Orders 12/26/18 15:27 DRUG SCREEN, URINE [URCHEM] Stat UA RFX MEGAN AND CULT IF INDIC [URIN] Stat
[2018-12-26 16:59] LABS: CHLORIDE,CL 105 mmol/L (98-107); SODIUM,NA 142 mmol/L (136-148)
[2018-12-26 17:00] LABS: ACETAMINOPHEN < 2.0 ug/mL
[2018-12-26] MEDS ORDERED: cloNIDine 0.1 MG Tab PO ONE (17:32)
[2018-12-26 17:44] VITALS: BP 154/99
== END 2018-12-26 18:27 ==
LOC: MW.ED 15:05
DX: R45.851 Suicidal ideations (principal)
CPT/HCPCS: 36415; 80053; 80305; 81001; 84443; 85025; 99285; A9270; G0480; 99284